=== PATIENT | male | born 1960 | race Caucasian/White ===

== ENCOUNTER 2017-08-12 08:53 | Inpatient (IN) ==
[2017-08-12] MEDS ORDERED: ASPIRIN PO STA (09:10)
[2017-08-12 09:24] LABS: MANUAL DIFF NEEDED? NO
[2017-08-12 09:35] LABS: URINE CULTURE PL NEEDED? NO
--- NOTE | 2017-08-12 09:44 | Diag Imaging Result Doc PS360 ---
EXAM: CHEST-PORTABLE - 08/12/2017 HISTORY: CP TECHNIQUE: Portable chest 9:22 AM COMPARISON: None. FINDINGS: There are multiple left rib deformities compatible with old rib fractures. There are deformities of upper right ribs compatible with old fractures. There is mild subsegmental atelectasis or scarring at the right upper lung, right base, and left lower lung. There is mild pleural thickening or small pleural effusion at the lateral right base. There is no consolidation, substantial vascular congestion, or pneumothorax identified. Heart size is normal. IMPRESSION: Old bilateral rib fracture deformities. Scattered mild subsegmental atelectasis or scarring. Mild pleural thickening or small pleural effusion at lateral right base. Electronically signed by Mitul Chowdary 08/12/2017 9:42 AM
[2017-08-12 09:57] LABS: AGAP 11; ALBUMIN 3.9 g/dL (3.5-5.0); ALKALINE PHOSPHATASE 61 U/L (32-122); BASO% 0.4 % (0.0-0.8); BUN 14 mg/dL (8-22); CALCIUM 8.4 mg/dL (8.8-10.2); CHLORIDE 102 mmol/L (98-107); COSMO 279; EOS# 0.17 X1000 (0.0-0.7); EOS% 1.6 % (0.0-10.0); GOT 27 U/L (10-34); GPT 37 U/L (10-44); HEMATOCRIT 53.5 % (42.0-52.0); HEMOGLOBIN 18.7 g/dL (14.0-18.0); IMM GRAN# 0.02 X1000 (0.0-0.04); IMM GRAN% 0.2 % (0.0-0.5); LYMPH# 1.28 X1000 (1.2-3.4); LYMPH% 12.1 % (20.5-51.1); MAGNESIUM 1.6 mg/dL (1.5-2.7); MCV 88.7 FL (81-99); MONO# 0.86 X1000 (0.11-0.59); MONO% 8.1 % (1.7-9.3); NEUT% 77.6 % (42.2-75.2); PLT 248 X1000 (130-400); POTASSIUM 3.1 mmol/L (3.5-5.1); RBC 6.03 XMIL (4.7-6.1); SODIUM 138 mmol/L (136-145); TCO2 24 mmol/L (25-35); TOTAL PROTEIN 6.8 g/dL (6.3-8.3)
[2017-08-12 10:03] LABS: INR 0.92 (0.86-1.15); PROTIME 13.1 Seconds (12.1-15.5)
[2017-08-12 10:04] LABS: PTT PL 33.8 Seconds (22.6-43.9)
[2017-08-12 10:06] LABS: CK PROFILE 369 U/L (24-204)
[2017-08-12 10:15] LABS: BILIRUBIN URINE NEGATIVE (NEGATIVE); BLOOD URINE NEGATIVE (NEGATIVE); CLARITY CLEAR (CLEAR); COLOR YELLOW; GLUCOSE URINE NEGATIVE (NEGATIVE); LEUKOCYTES URINE NEGATIVE (NEGATIVE); NITRITE URINE NEGATIVE (NEGATIVE); PROTEIN URINE NEGATIVE (NEGATIVE); UROBILINOGEN URINE NORMAL
[2017-08-12] MEDS ORDERED: KLOR-CON PO ONE (10:15)
[2017-08-12 10:28] LABS: URINE SOURCE CLEAN CATCH
[2017-08-12 10:34] LABS: UR AMPHETAMINES QUAL NONE DETECTED (NONE DETECT); UR BARBITUATES QUAL NONE DETECTED (NONE DETECT); UR BENZODIAZEPIN QUAL NONE DETECTED (NONE DETECT); UR CANNABINOIDS QUAL NONE DETECTED (NONE DETECT); UR COCAINE QUAL NONE DETECTED (NONE DETECT); UR MDMA QUAL NONE DETECTED (NONE DETECT); UR METHADONE QUAL NONE DETECTED (NONE DETECT); UR METHAMPHETAMINE QUAL NONE DETECTED (NONE DETECT); UR OPIATES QUAL NONE DETECTED (NONE DETECT); UR OXYCODONE QUAL NONE DETECTED (NONE DETECT); UR PCP QUAL NONE DETECTED (NONE DETECT); UR TCA QUAL NONE DETECTED (NONE DETECT)
[2017-08-12 11:04] LABS: CK INDEX 1.3 (0.0-2.5); CK-MB 4.77 ng/mL (0.0-5.0)
[2017-08-12 12:22] LABS: CK INDEX 1.3 (0.0-2.5); CK-MB 4.15 ng/mL (0.0-5.0)
[2017-08-12 12:55] LABS: BE 2.5 mmoll (-3.0-3.0); BLOOD TYPE ARTERIAL; METHB 1.2 % (0.0-1.5); O2(CT) 22.2 mL/dL (15.0-23.0); PCO2(98.6) 38 mmHg (35-45); PO2(98.6) 51 mmHg (60-100); SAMPLE BLOOD; SAO2 91.2 % (95.0-100.0); THB 18.9 g/dL (11.5-17.4); pH(98.6) 7.45 (7.35-7.45)
[2017-08-12] MEDS ORDERED: ZOFRAN IV ONE (12:56)
[2017-08-12] MEDS ORDERED: DUONEB (A & A) INH ONE (13:01)
[2017-08-12] MEDS ORDERED: SOLU-MEDROL IV ONE (13:01)
[2017-08-12 13:47] LABS: ALLEN TEST YES; DRAW SITE R RADIAL; MODALITY ROOM AIR
[2017-08-12] MEDS ORDERED: ZOFRAN IV PRN (14:06)
[2017-08-12] MEDS ORDERED: TYLENOL PO PRN (14:06)
[2017-08-12] MEDS: INDOCIN PO SCH ×2 (16:10→21:26)
[2017-08-12] MEDS: 1/2 NS 1,000 ML IV SCH (16:11)
[2017-08-12] MEDS: HEPARIN SUBQ SCH (20:04)
[2017-08-12] MEDS: NICODERM PATCH TD SCH (20:04)
[2017-08-12] MEDS ORDERED: TUMS PO ONE (23:03)
[2017-08-13] MEDS: 1/2 NS 1,000 ML IV SCH (04:26)
[2017-08-13 06:20] LABS: HEMOGLOBIN A1C 5.8 % (4.8-6.0)
[2017-08-13 06:33] LABS: HEMATOCRIT 52.8 % (42.0-52.0); IMM GRAN# 0.02 X1000 (0.0-0.04); IMM GRAN% 0.1 % (0.0-0.5); LYMPH# 0.54 X1000 (1.2-3.4); LYMPH% 3.6 % (20.5-51.1); MANUAL DIFF NEEDED? YES; MCH 30.4 PG (27-31); MCHC 34.1 g/dL (33-37); MCV 89.2 FL (81-99); MONO# 0.54 X1000 (0.11-0.59); MONO% 3.6 % (1.7-9.3); MPV 9.7 FL (7.4-10.4); NEUT% 92.7 % (42.2-75.2); PLT 260 X1000 (130-400); RBC 5.92 XMIL (4.7-6.1)
[2017-08-13 06:35] LABS: AGAP 11; ALBUMIN 3.3 g/dL (3.5-5.0); ALKALINE PHOSPHATASE 59 U/L (32-122); BUN 16 mg/dL (8-22); CALCIUM 8.8 mg/dL (8.8-10.2); CHLORIDE 102 mmol/L (98-107); COSMO 277; GOT 16 U/L (10-34); GPT 29 U/L (10-44); MAGNESIUM 1.9 mg/dL (1.5-2.7); POTASSIUM 4.2 mmol/L (3.5-5.1); SODIUM 135 mmol/L (136-145); TCO2 22 mmol/L (25-35); TOTAL PROTEIN 6.7 g/dL (6.3-8.3)
[2017-08-13] MEDS: INDOCIN PO SCH ×2 (06:36→13:37)
[2017-08-13 08:09] LABS: BANDS 2 % (0-1); LYMPHS 4 % (21-51)
[2017-08-13] MEDS ORDERED: ZYLOPRIM PO SCH (09:00)
[2017-08-13] MEDS ORDERED: HYDROCHLOROTHIAZIDE PO SCH (09:00)
[2017-08-13] MEDS ORDERED: LEXAPRO PO SCH (09:00)
[2017-08-13] MEDS ORDERED: NORVASC PO SCH (09:00)
[2017-08-13] MEDS: HEPARIN SUBQ SCH (13:35)
[2017-08-13] MEDS: NICODERM PATCH TD SCH (13:36)
[2017-08-13] MEDS ORDERED: NORCO-10 PO PRN (14:01)
[2017-08-13] MEDS ORDERED: PROTONIX IV SCH (14:30)
[2017-08-13] MEDS ORDERED: SODIUM CHLORIDE 0.9% INJ SCH (14:30)
[2017-08-13] MEDS ORDERED: LEXISCAN ONE (14:41)
--- NOTE | 2017-08-13 15:15 | Diag Imaging Result Document ---
PROCEDURE NAME: MYOCARDIAL PERF SCAN, STR/REST - 08/12/2017 INDICATION: Chest pain. PROCEDURES PERFORMED: 1. Lexiscan stress (results dictated separately). 2. One -day stress/rest myocardial perfusion imaging. PROCEDURE IN DETAIL: Mr. Wiggins was brought to the nuclear laboratory and had a resting study with injection of 12.8 mCi of technetium-99m sestamibi, with usual imaging protocol utilized. He subsequently was brought back and had a Lexiscan stress. At peak stress, was injected with 36.9 mCi of technetium-99m sestamibi, with usual imaging protocol utilized. FINDINGS: 1. No evidence of abnormal extracardiac uptake. 2. TID ratio is 1.0. 3. Perfusion imaging demonstrates a very small sized, mild intensity, fixed defect in the inferior apical, mid inferior, and basal inferior segments. This defect improves from rest to stress imaging, suggesting the possibility of soft tissue attenuation artifact. There is no evidence of ischemia. 4. Normal ejection fraction 72%. End-diastolic volume 149. End systolic volume of 42. Normal wall motion. cc: MD Ta Landry MD
[2017-08-13 15:49] VITALS: BP 123/66
[2017-08-13] MEDS ORDERED: COREG PO SCH (21:00)
[2017-08-13] MEDS ORDERED: LIPITOR PO SCH (21:00)
[2017-08-14] MEDS ORDERED: NORVASC PO SCH (09:00)
[2017-08-14] MEDS ORDERED: ASPIRIN PO SCH (09:00)
== END 2017-08-13 19:29 | disposition short-term general hospital (02) ==
LOC: P.ED 08:53 → P.MEDSURG 14:20
PROVIDERS: ATTEND Internal Medicine